=== PATIENT | male | born 1990 | race Caucasian/White ===

== ENCOUNTER 2017-03-12 17:35 | Emergency (ER) | payer MEDICAID ==
[~2017-03-12] VITALS: Ht 175.3 cm; Wt 63.5 kg
[2017-03-12 17:42] VITALS: BP 136/97
--- NOTE | 2017-03-12 18:15 | NUR ---
CALLED NA. WILL CALL AGAIN IN 15MINS.
--- NOTE | 2017-03-12 18:45 | NUR ---
PATIENT LEFT WITHOUT BEING SEEN BY DR. ARORA. NO FURTHER CARE PROVIDED FOR PATIENT.
== END 2017-03-12 18:45 | disposition left against medical advice (07) ==
LOC: MED 17:35
DX: R21 Rash and other nonspecific skin eruption (principal); Z53.21 Procedure and treatment not carried out due to patient leaving prior to being seen by health care provider

== ENCOUNTER 2017-03-20 03:45 | Emergency (ER) | payer MEDICAID ==
[~2017-03-20] VITALS: Ht 177.8 cm; Wt 63.5 kg
[2017-03-20 03:48] VITALS: BP 124/75
--- NOTE | 2017-03-20 03:55 | NUR ---
PT TAKEN TO BED 5
--- NOTE | 2017-03-20 04:02 | NUR ---
PT STATES HE NOTICED SMALL WHITE HEADS ON HIS LEFT SHOULDER NOW FOR 4 DAYS. HE'S NOT SURE WHAT IT IS, BUT IT IS ITCHING AND HIS LEFT ELBOW IS ITCHING WELL. PT DENIES N/V/D; SKIN IS PINK/WARM/DRY; AAOX4 WITH EVEN AND STEADY GAIT; LUNGS CLEAR BL; HR EVEN AND REGULAR; PT DENIES ANY FEVER, CP, SOB, OR COUGH AT THIS TIME; PATIENT STATES PAIN OF 0/10 AT THIS TIME; VSS; PATIENT POSITIONED FOR COMFORT; HOB ELEVATED; BEDRAILS UP X2; BED DOWN. ER MD MADE AWARE OF PT STATUS.
--- NOTE | 2017-03-20 04:20 | NUR ---
Dr. Honeycutt evaluating patient at bedside.
[2017-03-20 04:28] VITALS: BP 124/75
== END 2017-03-20 04:28 | disposition home or self-care (01) ==
LOC: MED 03:45
DX: R21 Rash and other nonspecific skin eruption (principal)

== ENCOUNTER 2017-09-06 01:33 | Emergency (ER) | payer MEDICAID ==
[~2017-09-06] VITALS: Ht 175.3 cm; Wt 68.0 kg
[2017-09-06 01:38] VITALS: BP 106/67
--- NOTE | 2017-09-06 02:02 | NUR ---
PT PLACED IN BED 12.
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
--- NOTE | 2017-09-06 02:35 | NUR ---
Patient discharged with v/s stable. Written and verbal after care instructions given and explained. Patient alert, oriented and verbalized understanding of instructions. Ambulatory with steady gait. All questions addressed prior to discharge. ID band removed. Patient advised to follow up with PMD. Rx of NAPROSYN 500MG given. Patient educated on indication of medication including possible reaction and side effects. Opportunity to ask questions provided and answered.
== END 2017-09-06 02:35 | disposition home or self-care (01) ==
LOC: MED 01:33
DX: M17.12 Unilateral primary osteoarthritis, left knee (principal)
CPT/HCPCS: 99282

== ENCOUNTER 2017-11-17 00:05 | Emergency (ER) | payer MEDICAID ==
[~2017-11-17] VITALS: Ht 175.3 cm; Wt 63.0 kg
[2017-11-17 00:24] VITALS: BP 136/76
[2017-11-17 00:29] VITALS: BP 136/76
--- NOTE | 2017-11-17 00:29 | NUR ---
TO LOBBY, A/W GRANT MEZA ERMD NOTED
--- NOTE | 2017-11-17 01:00 | NUR ---
PATIENT CALLED TO BED , NO RESPONSE
--- NOTE | 2017-11-17 01:05 | NUR ---
CALLED FOR THE SECOND TIME NO RESPONSE.
--- NOTE | 2017-11-17 01:10 | NUR ---
PATIENT CALLED FOR THE THIRD TIME NO ANSWER. PATIENT LEFT WITHOUT BEING SEEN BY DR. BELTRÁN. NO FURTHER CARE PROVIDED FOR PATIENT.
== END 2017-11-17 01:10 | disposition left against medical advice (07) ==
LOC: MED 00:05
DX: R05 Cough (principal); Z53.21 Procedure and treatment not carried out due to patient leaving prior to being seen by health care provider

== ENCOUNTER 2018-04-29 23:43 | Emergency (ER) | payer MEDICAID ==
[~2018-04-29] VITALS: Ht 175.3 cm; Wt 73.5 kg
[2018-04-29 23:47] VITALS: BP 151/87
--- NOTE | 2018-04-29 23:50 | NUR ---
PT AMBULATED TO ER BED 03
--- NOTE | 2018-04-30 00:01 | NUR ---
PATIENT PRESENTS TO ED WITH SORE ON HIS BOTTOM INNER LIP. PATIENT STATES ITS IRRITATING WHILE HE EATS AND WANTS IT CHECKED OUT. PT DENIES N/V/D; SKIN IS PINK/WARM/DRY; AAOX4 WITH EVEN AND STEADY GAIT; LUNGS CLEAR BL; HR EVEN AND REGULAR; PT DENIES ANY FEVER, CP, SOB, OR COUGH AT THIS TIME; PATIENT STATES PAIN OF 0/10 AT THIS TIME; VSS; PATIENT POSITIONED FOR COMFORT; HOB ELEVATED; BEDRAILS UP X1; BED DOWN. ER MD MADE AWARE OF PT STATUS.
[2018-04-30] MEDS ORDERED: LIDOCAINE 2% 1000 MG/50 ML VIAL INJ ONE (01:00)
--- NOTE | 2018-04-30 02:55 | NUR ---
Patient discharged with v/s stable. Written and verbal after care instructions given and explained. Patient verbalized understanding. Ambulatory with steady gait. All questions addressed prior to discharge. Advised to follow up with PMD.
[2018-04-30 02:56] VITALS: BP 151/87
== END 2018-04-30 02:55 | disposition home or self-care (01) ==
LOC: MED 23:43
DX: R22.0 Localized swelling, mass and lump, head (principal); B07.8 Other viral warts
CPT/HCPCS: 99284; J2001

== ENCOUNTER 2018-08-05 18:40 | Emergency (ER) | payer MEDICAID ==
[~2018-08-05] VITALS: Ht 175.3 cm; Wt 84.8 kg
[2018-08-05 18:53] VITALS: BP 126/74
--- NOTE | 2018-08-05 19:02 | NUR ---
PT AMBULATES TO BED 3
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
--- NOTE | 2018-08-05 19:49 | NUR ---
PER VERBAL ORDER FROM [facility], PT WOUND CLEANED AND IRRIGATED WITH NORMAL SALINE
[2018-08-05 20:07] VITALS: BP 130/75
--- NOTE | 2018-08-05 20:07 | NUR ---
Patient discharged with v/s stable. Written and verbal after care instructions given and explained. Patient alert, oriented and verbalized understanding of instructions. Ambulatory with steady gait. All questions addressed prior to discharge. ID band removed. Patient advised to follow up with PMD. Rx of BACITRACIN AND KEFLEX AND TYLENOL EXTRA STRENGTH given. Patient educated on indication of medication including possible reaction and side effects. Opportunity to ask questions provided and answered.
== END 2018-08-05 20:07 | disposition home or self-care (01) ==
LOC: MED 18:40
DX: S61.512A Laceration without foreign body of left wrist, initial encounter (principal); W26.0XXA Contact with knife, initial encounter; Y93.89 Activity, other specified; Y92.89 Other specified places as the place of occurrence of the external cause; Y99.8 Other external cause status
CPT/HCPCS: 99283

== ENCOUNTER 2018-09-18 13:36 | Emergency (ER) | payer MEDICAID ==
[~2018-09-18] VITALS: Ht 175.3 cm; Wt 81.6 kg
[2018-09-18 13:42] VITALS: BP 107/55
[2018-09-18] MEDS ORDERED: KETOROLAC 60 MG/2 ML VIAL IM ONE (14:00)
[2018-09-18] MEDS ORDERED: MORPHINE SULFATE 2 MG/ML SYR IM ONE (14:00)
[2018-09-18] MEDS ORDERED: MORPHINE SULFATE 4 MG/ML SYR ONE (14:16)
[2018-09-18] MEDS ORDERED: NACL 0.9% 1,000 ML IV ONE (15:48)
[2018-09-18] MEDS ORDERED: KETOROLAC 30 MG/ML VIAL IVP ONE (15:50)
[2018-09-18] MEDS ORDERED: HYDROmorphone PFS 2 MG/ML SYR IVP ONE (15:50)
[2018-09-18] MEDS ORDERED: ONDANSETRON 4 MG/2 ML VIAL IVP ONE (15:50)
[2018-09-18 16:11] LABS: BASOPHILS % (AUTO) 0.2 % (0.0-2.0); EOSINOPHILS # (AUTO) 0.1 K/uL (0-0.4); EOSINOPHILS % (AUTO) 0.5 % (0.0-4.0); HEMATOCRIT 39.4 % (36-52); HEMOGLOBIN 13.6 g/dL (12.0-18.0); LYMPHOCYTES # (AUTO) 1.7 K/uL (2.0-11.5); MEAN CORPUSCULAR HEMOGLOBIN 33 pg (27-31); MEAN CORPUSCULAR HGB CONC 35 g/dL (33-37); MEAN CORPUSCULAR VOLUME 95.5 fL (80-94); MONOCYTES # (AUTO) 0.6 K/uL (0.8-1.0); MONOCYTES % (AUTO) 5.3 % (1.7-9.3); NEUTROPHILS # (AUTO) 8.1 K/uL (1.8-7.7); PLATELET COUNT (AUTO) 246 K/uL (140-450); RED BLOOD CELL COUNT(AUTO) 4.12 MIL/uL (4.20-6.10); RED CELL DISTRIBUTION WIDTH 12.6 % (11.6-13.7); WHITE BLOOD COUNT (AUTO) 10.4 K/uL (4.8-10.8)
[2018-09-18 16:23] LABS: ANION GAP 11.4 (8-16); CARBON DIOXIDE 27.5 mmol/L (21-32); CREATININE 1.1 mg/dL (0.7-1.3); POTASSIUM 3.9 mmol/L (3.5-5.1)
[2018-09-18 16:26] LABS: PROTHROMBIN TIME 9.6 secs (10.8-13.4)
[2018-09-18 16:29] LABS: ALBUMIN 4.2 g/dL (3.4-5.0); TOTAL BILIRUBIN 0.4 mg/dL (0.0-1.0)
[2018-09-18 19:47] VITALS: BP 118/61
== END 2018-09-18 19:50 | disposition short-term general hospital (02) ==
LOC: MED 13:36
DX: S82.432A Displaced oblique fracture of shaft of left fibula, initial encounter for closed fracture (principal); V19.9XXA Pedal cyclist (driver) (passenger) injured in unspecified traffic accident, initial encounter; V89.2XXA Person injured in unspecified motor-vehicle accident, traffic, initial encounter; Y93.89 Activity, other specified; Y92.488 Other paved roadways as the place of occurrence of the external cause; Y99.8 Other external cause status
CPT/HCPCS: 29505; 36415; 71045; 73590; 73610; 80053; 82150; 83690; 84484; 85025; 85610; 85730; 93005; 96374; 96375; 96376; 99285; J1170; J1885; J2270; J2405; J7030; Q0092

== ENCOUNTER 2019-03-30 14:41 | Emergency (ER) | payer MEDICAID ==
[~2019-03-30] VITALS: Ht 175.3 cm; Wt 92.1 kg
[2019-03-30 15:03] VITALS: BP 140/76
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
[2019-03-30] MEDS ORDERED: cefTRIAXone 1,000 MG in LIDOCAINE MPF 1% - 5 mL VIAL 2.1 ML IM ONE (15:20)
--- NOTE | 2019-03-30 15:36 | NUR ---
IM- ABX INJECTION GIVEN; NADR AT THIS TIME.
[2019-03-30 15:54] VITALS: BP 132/72
--- NOTE | 2019-03-30 15:54 | NUR ---
Patient discharged with v/s stable. Written and verbal after care instructions given and explained. Patient alert, oriented and verbalized understanding of instructions. Ambulatory with steady gait. All questions addressed prior to discharge. ID band removed. Patient advised to follow up with PMD. Rx of Bactrim, Keflex and Motrin given. Patient educated on indication of medication including possible reaction and side effects. Opportunity to ask questions provided and answered.
== END 2019-03-30 15:54 | disposition home or self-care (01) ==
LOC: MED 14:41
DX: L03.115 Cellulitis of right lower limb (principal); R03.0 Elevated blood-pressure reading, without diagnosis of hypertension
CPT/HCPCS: 90471; 90715; 96372; 99283; J0696; J2001